=== PATIENT | female | born 2000 | race Two or more races ===

== ENCOUNTER 2024-12-08 09:00 | Emergency (ER) | payer OTHER ==
[~2024-12-08] VITALS: Ht 162.6 cm; Wt 61.2 kg
[2024-12-08] MEDS ORDERED: PLAQUENIL (09:30)
[2024-12-08] MEDS ORDERED: 0.9 % SODIUM CHLORIDE 500 ML IV ONE (10:30)
[2024-12-08] MEDS ORDERED: KETOROLAC TROMETHAMINE 30 MG VIAL IV ONE (10:30)
[2024-12-08] MEDS ORDERED: METOCLOPRAMIDE HCL 10 MG in DEXTROSE 5 % IN WATER 50 ML IV ONE (10:30)
[2024-12-08] MEDS ORDERED: DEXAMETHASONE SODIUM PHOSPHATE 4 MG/ML VIAL IM ONE (10:30)
[2024-12-08] MEDS ORDERED: NAPROXEN500 MG PO (12:40)
== END 2024-12-08 12:58 | disposition home or self-care (01) ==
LOC: ER 09:00
DX: G43.909 Migraine, unspecified, not intractable, without status migrainosus (principal); M06.8A Other specified rheumatoid arthritis, other specified site; Z88.0 Allergy status to penicillin